=== PATIENT | female | born 1960 | race African-American/Black ===

== ENCOUNTER 2017-02-24 09:44 | Emergency (ER) | payer SELFPAY ==
[2017-02-24] MEDS ORDERED: ALBUTEROL SULFATE 0.083% NEB 2.5 MG/3 ML AMPUL NEB ONE (10:06)
--- NOTE | 2017-02-24 10:06 | ER Document Report ---
HPI - HPI Patient complains to provider of: aches, cough Onset: Other - 4 days Pain Level: 5 Context: 56-year-old smoker is complaining of cough and congestion for 4 days. No shortness of breath. No chest pain. No nausea vomiting or diarrhea. Associated Symptoms: None Exacerbated by: Denies Relieved by: Denies - ROS ROS below otherwise negative: Yes Systems Reviewed and Negative: Yes All other systems reviewed and negative - REPRODUCTIVE Reproductive: DENIES: : Past Medical History - General Information source: Patient - Social History Smoking Status: Current Every Day Smoker Frequency of alcohol use: None Drug Abuse: None Occupation: [employer] Lives with: Family Family History: Reviewed & Not Pertinent Pulmonary Medical History: Reports: Hx Bronchitis Past Surgical History: Reports: Hx Hysterectomy, Hx Orthopedic Surgery - R Foot - Immunizations Hx Diphtheria, Pertussis, Tetanus Vaccination: Yes Vertical Provider Document - CONSTITUTIONAL Agree With Documented VS: Yes Exam Limitations: No Limitations General Appearance: No Apparent Distress - INFECTION CONTROL TRAVEL OUTSIDE OF THE [place] IN LAST 30 DAYS: No - HEENT HEENT: Normal ENT Exam, Normocephalic - NECK Neck: Supple. negative: Lymphadenopathy-Left, Lymphadenopathy-Right - RESPIRATORY Respiratory: Breath Sounds Normal, No Respiratory Distress O2 Sat by Pulse Oximetry: 98 - CARDIOVASCULAR Cardiovascular: Regular Rate, Regular Rhythm - MUSCULOSKELETAL/EXTREMETIES Musculoskeletal/Extremeties: EB ANDREA - NEURO Level of Consciousness: Awake, Alert, Appropriate - DERM Integumentary: Warm, Dry, No Rash Course - Re-evaluation Re-evalutation: 02/24/17 10:47 Chest x-ray is negative I will treat her for bronchitis her lungs are clear but she is moving air better after the breathing treatment and she says she feels better. Patient wants a work note to be out until Monday02/24/17 10:49 - Vital Signs Vital signs: Temp Pulse Resp BP Pulse Ox 98.3 F 93 16 112/80 98 02/24/17 09:53 02/24/17 09:53 02/24/17 09:53 02/24/17 09:53 02/24/17 09:53 Discharge - Discharge Clinical Impression: Bronchitis Condition: Good Disposition: HOME, SELF-CARE Instructions: Acetaminophen, Bronchitis ([facility]), Inhaled Bronchodilators ([facility]), Stop Smoking ([facility]) Additional Instructions: Stop smoking Plenty of fluids Rest Tylenol albuterol metered-dose inhaler for the cough Return to the emergency room if worsening of symptoms Copy of negative x-ray given to you Prescriptions: Albuterol Sulfate [Proair HFA Inhalation Aerosol 8.5 gm MDI] 2 puff IH Q3HP PRN #1 [email or web address] PRN Reason: Forms: Return to Work
--- NOTE | 2017-02-24 10:37 | RADIOLOGY REPORT (SQ) ---
EXAM DESCRIPTION: CHEST PA/LAT COMPLETED DATE/TIME: 02/24/2017 10:24 am REASON FOR STUDY: cough COMPARISON: None. EXAM PARAMETERS: NUMBER OF VIEWS: two views TECHNIQUE: Digital Frontal and Lateral radiographic views of the chest acquired. RADIATION DOSE: NA LIMITATIONS: none FINDINGS: LUNGS AND PLEURA: Lungs are hyperinflated, question obstructive lung disease. No focal infiltrates. No pleural effusions. No pneumothorax. MEDIASTINUM AND HILAR STRUCTURES: No masses or contour abnormalities. HEART AND VASCULAR STRUCTURES: Heart normal size. No evidence for failure. BONES: Osteopenia HARDWARE: None in the chest. OTHER: Artifact from clothing on the patient IMPRESSION: NO SIGNIFICANT RADIOGRAPHIC FINDING IN THE CHEST. TECHNICAL DOCUMENTATION: JOB ID: [id number] [employer]- All Rights Reserved
[2017-02-24 11:08] VITALS: BP 104/71
== END 2017-02-24 11:08 | disposition home or self-care (01) ==
LOC: ER 09:44
DX: J40 Bronchitis, not specified as acute or chronic (principal); M79.1 Myalgia; R05 Cough; R09.81 Nasal congestion; F17.200 Nicotine dependence, unspecified, uncomplicated
CPT/HCPCS: 71020; 94640; 99283

== ENCOUNTER 2018-11-17 10:28 | Emergency (ER) | payer SELFPAY ==
--- NOTE | 2018-11-17 11:06 | ER Document Report ---
HPI - HPI Time Seen by Provider: 11/17/18 10:42 Pain Level: 5 Notes: This is a 58-year-old female presenting to the emergency department chief complaint of urinary frequency, dysuria and urgency that has been ongoing for 1 week. Patient also reports accompanied low back pain. She denies any fevers or abdominal pain. She thinks that she may have a urinary tract infection. She denies any abnormal vaginal discharge and states that she is not sexually active and has not been for 2 years so she has no concern for STDs. - REPRODUCTIVE Reproductive: DENIES: : Past Medical History - General Information source: Patient Last Menstrual Period: Hysterectomy - Social History Smoking Status: Current Every Day Smoker Chew tobacco use (# tins/day): No Frequency of alcohol use: Occasional Drug Abuse: None Family History: Reviewed & Not Pertinent Patient has suicidal ideation: No Patient has homicidal ideation: No Pulmonary Medical History: Reports: Hx Bronchitis Renal/ Medical History: Denies: Hx Peritoneal Dialysis Past Surgical History: Reports: Hx Hysterectomy, Hx Orthopedic Surgery - R Foot - Immunizations Hx Diphtheria, Pertussis, Tetanus Vaccination: Yes Vertical Provider Document - CONSTITUTIONAL Notes: PHYSICAL EXAMINATION: GENERAL: Well-appearing, well-nourished and in no acute distress. HEAD: Atraumatic, normocephalic. EYES: Pupils equal round extraocular movements intact, conjunctiva are normal. ENT: Nares patent NECK: Normal range of motion LUNGS: No respiratory distress Abdomen: Abdomen soft, nontender without guarding or rebound. No CVA tenderness. Musculoskeletal: Normal range of motion, mild tenderness to palpation to lumbar area, no vertebral tenderness, step-off or deformity. NEUROLOGICAL: Normal speech, normal gait. PSYCH: Normal mood, normal affect. SKIN: Warm, Dry, normal turgor, no rashes or lesions noted. - INFECTION CONTROL TRAVEL OUTSIDE OF THE [place] IN LAST 30 DAYS: No Course - Re-evaluation Re-evalutation: Laboratory 11/17/18 11:45 Urine Color YELLOW Urine Appearance CLOUDY Urine pH 5.0 Ur Specific [place] 1.013 Urine Protein NEGATIVE Urine Glucose (UA) NEGATIVE Urine Ketones NEGATIVE Urine Blood NEGATIVE Urine Nitrite POSITIVE H Urine Bilirubin NEGATIVE Urine Urobilinogen 4.0 H Ur Leukocyte Esterase MODERATE H Urine WBC (Auto) 121 Urine RBC (Auto) 1 Urine Bacteria (Auto) 1+ Urine WBC Clumps FEW Squamous Epi Cells Auto <1 Urine Mucus (Auto) FEW Urine Ascorbic Acid 20 H Patient appears well, nontoxic and vital signs are within normal limits. Abdomen is soft and nontender. No CVA tenderness. Urinalysis is positive for nitrates and leukocyte esterase. Greater than 121 WBCs. Will start on oral antibiotics pending urine culture. Patient is in agreement with this plan. Patient will be is also be given a dose of Pyridium and a prescription for same. The patient's emergency department workup and current diagnosis were explained to the patient and or family. Follow-up instructions were provided. Medications if prescribed were discussed. Instructions for when to return to the emergency department including specific worrisome symptoms were discussed with the patient and/or family. - Vital Signs Vital signs: Temp Pulse Resp BP Pulse Ox 98.8 F 78 16 118/73 100 11/17/18 10:36 11/17/18 10:36 11/17/18 10:36 11/17/18 10:36 11/17/18 10:36 Discharge - Discharge Clinical Impression: Urinary tract infection Qualifiers: Urinary tract infection type: acute cystitis Hematuria presence: without hematuria Qualified Code(s): N30.00 - Acute cystitis without hematuria Condition: Stable Disposition: HOME, SELF-CARE Additional Instructions: Your urine shows findings consistent with a urinary tract infection. Please take all the antibiotics as directed even if your symptoms have improved. Please follow-up with your primary care physician as needed. Return to emergency room if you develop fever >101F, persistent vomiting, become lethargic, have severe pain in your sides, or any other symptoms that are concerning to you. Prescriptions: Cephalexin [Cephalexin 500 MG Tablet] 1 tab PO BID #14 tablet Phenazopyridine HCl [Pyridium 100 Mg Tablet] 100 mg PO TID #6 tablet
[2018-11-17 12:09] LABS: APPEARANCE,URINE CLOUDY; BILIRUBIN,URINE NEGATIVE (NEGATIVE); COLOR,URINE YELLOW; GLUCOSE, URINE NEGATIVE (NEGATIVE); KETONES,URINE NEGATIVE (NEGATIVE); LEUKOCYTE ESTERASE,URINE MODERATE (NEGATIVE); NITRITE,URINE POSITIVE (NEGATIVE); PROTEIN,URINE NEGATIVE (NEGATIVE); URINE SPECIFIC GRAVITY 1.013
[2018-11-17 12:28] VITALS: BP 123/70
== END 2018-11-17 12:29 | disposition home or self-care (01) ==
LOC: ER 10:28
DX: N30.00 Acute cystitis without hematuria (principal); R35.0 Frequency of micturition; R30.0 Dysuria; R39.15 Urgency of urination; M54.5 Low back pain; F17.200 Nicotine dependence, unspecified, uncomplicated
CPT/HCPCS: 51701; 81001; 87086; 87088; 87186; 99283